=== PATIENT | female | born 1970 | race Hispanic/Latino ===

== ENCOUNTER 2025-06-29 10:55 | Emergency (ER) | payer BC ==
[~2025-06-29] VITALS: Ht 162.6 cm; Wt 74.8 kg
[~2025-06-29 10:55] MED LIST: GLIPIZIDE-METF1 EAC2 PO; VALTREX1000 MG PO
[2025-06-29 11:10] VITALS: PULSE 74; RESP 15; TEMP 97.1
[2025-06-29] MEDS ORDERED: SODIUM CHLORIDE FLUSH 10 ML SYR IV PRN (11:45)
[2025-06-29 11:48] LABS: BASOPHILS % 0.8 % (0.0-1.0); EOSINOPHILS % 2.3 % (0.0-6.0); LYMPHOCYTES % 21.0 % (18.0-39.1); MONOCYTES % 4.3 % (4.4-11.3); NEUTROPHILS % 71.2 % (38.7-80.0); RED CELL DISTRIBUTION WIDTH 13.0 % (11.7-14.4)
[2025-06-29 12:09] LABS: INR 1.03
[2025-06-29 12:18] LABS: EST GLOMERULAR FILTRATION RATE 106 ML/MIN (>=60)
[2025-06-29] MEDS: MECLIZINE HCL 12.5 MG TAB PO ONE (13:11)
[2025-06-29] MEDS ORDERED: VERTICALM25 MG PO (14:19)
[2025-06-29 14:32] VITALS: BP 116/72; PULSE 72; RESP 17; O2SAT 98
== END 2025-06-29 14:32 | disposition home or self-care (01) ==
LOC: ER 10:59
DX: H81.20 Vestibular neuronitis, unspecified ear (principal); R11.0 Nausea; E11.65 Type 2 diabetes mellitus with hyperglycemia; R94.31 Abnormal electrocardiogram [ECG] [EKG]
CPT/HCPCS: 36415; 70450; 71045; 80053; 83880; 84484; 85025; 85610; 85730; 93005; 94760; 99284; J8597